=== PATIENT | male | born 1965 | race Caucasian/White ===

== ENCOUNTER 2022-10-24 05:56 | Emergency (ER) | payer OTHER ==
[~2022-10-24] VITALS: Ht 167.6 cm; Wt 65.0 kg
--- NOTE | 2022-10-24 08:11 | NUR ---
pt states he has double vision when looking out of both eyes. when he covers one eye the vision is fine. there does appear to be some uncoordinated movement with the right eye and significant other at bedside says that is not normal for him and he doesn't normally look like that.
[2022-10-24 08:18] LABS: BASOPHILS % (AUTO) 0.7 % (0-1); EOSINOPHILS % (AUTO) 0.6 % (0-6); HEMATOCRIT 38.8 % (42.0-52.0); HEMOGLOBIN 13.1 g/dl (14.0-17.9); LYMPHOCYTES % (AUTO) 19.4 % (21-51); MEAN CORPUSCULAR HGB CONC 33.8 g/dL (33.0-36.5); MEAN CORPUSCULAR VOLUME 91.8 FL (78-98); MEAN PLATELET VOLUME 6.6 FL (7.4-10.4); MONOCYTES # (AUTO) 1.1 X10'3 (0-0.9); MONOCYTES % (AUTO) 20.6 % (2-12); NEUTROPHILS # (AUTO) 3.1 X10'3 (1.8-7.7); NEUTROPHILS % (AUTO) 58.7 % (42-75); PLATELET COUNT 271 X10'3 (140-440); RED BLOOD COUNT 4.22 X10'6 (4.70-6.10); RED CELL DISTRIBUTION WIDTH 13.4 % (11.5-14.5); WHITE BLOOD COUNT 5.2 X10'3 (4.5-11.0)
[2022-10-24 08:30] LABS: ALANINE AMINOTRANSFERASE 45 U/L (12-78); ALBUMIN 3.5 G/DL (3.4-5.0); ALBUMIN/GLOBULIN RATIO 0.9 (1.1-1.5); ALKALINE PHOSPHATASE 69 IU/L (46-116); ANION GAP 6 (8-16); ASPARTATE AMINO TRANSFERASE 38 U/L (10-37); BILIRUBIN,TOTAL 0.3 MG/DL (0.1-1.0); BLOOD UREA NITROGEN 12 MG/DL (7-18); BUN/CREATININE RATIO 11.9 (5.4-32.0); CALCIUM 8.4 MG/DL (8.5-10.1); CHLORIDE 99 MMOL/L (99-107); CREATININE 1.01 MG/DL (0.60-1.10); GLUCOSE 121 MG/DL (70-104); POTASSIUM 3.7 MMOL/L (3.5-5.1); SODIUM 133 MMOL/L (135-145); TOTAL CARBON DIOXIDE 28.3 MMOL/L (24-32); TOTAL PROTEIN 7.3 G/DL (6.4-8.2); eGFR 76 ML/MIN
[2022-10-24] MEDS ORDERED: normal saline 1000ML IV soln IVB ONE (08:30)
[2022-10-24 08:33] LABS: APTT 27 SECONDS (22-32)
--- NOTE | 2022-10-24 08:43 | NUR ---
significant other at bedside. medical office technology instructor just entered the room and said that MD wants MRI/MRA of head. She is going to change the order as it was originally entered for CTA head. IV fluids infusing. pt denies needs at this time. reports vision is not getting better or worse. just staying the same.
[2022-10-24 08:55] LABS: C-REACTIVE PROTEIN 0.22 MG/DL (0.0-0.5); CHOL/HDL RATIO 2.8 (0.00-4.99); CHOLESTEROL 141 MG/DL (0-200); HDL CHOLESTEROL 50 MG/DL (35-60); LDL CHOLESTEROL 83 MG/DL (50-100); TRIGLYCERIDES 37 MG/DL (20-135)
--- NOTE | 2022-10-24 11:59 | NUR ---
pt back from MRI - no changes in condition. vitals updated
[2022-10-24 13:49] VITALS: BP 103/67
--- NOTE | 2022-10-24 13:49 | NUR ---
unable to locate an eye patch. a dressing was used to patch eye and pt states he will pick up driver an eye patch at pharmacy
== END 2022-10-24 13:52 | disposition home or self-care (01) ==
LOC: ER 05:58
DX: H49.01 Third [oculomotor] nerve palsy, right eye (principal); H53.2 Diplopia
CPT/HCPCS: 36415; 70450; 70544; 70551; 72170; 80053; 85025; 85610; 85651; 85730; 93005; 96360; 99285; J7030; 80061; 86140

== ENCOUNTER 2023-05-06 18:08 | Emergency (ER) | payer MEDICAID ==
[~2023-05-06] VITALS: Ht 172.7 cm; Wt 68.2 kg
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
[2023-05-06] MEDS ORDERED: morphine 10mg/ml inj. IV ONE (18:25)
--- NOTE | 2023-05-06 18:26 | NUR ---
IV to NGUYEN 18G. First attempt.
[2023-05-06] MEDS ORDERED: TETRACAINE 0.5% 4 ML OPHTHALMIC DROPS LEFTEYE ONE (18:35)
[2023-05-06] MEDS ORDERED: famotidine/PF 10 mg/ml inj IV ONE (18:55)
[2023-05-06] MEDS ORDERED: bacitracin 15gm ointment TP ONE ×2 (18:55→20:15)
[2023-05-06] MEDS ORDERED: ringers solution, lacted 1,000 ML IV ONE ×3 (18:55)
[2023-05-06 19:23] LABS: BASOPHILS # (AUTO) 0.1 X10'3 (0-0.2); BASOPHILS % (AUTO) 0.9 % (0-1); EOSINOPHILS # (AUTO) 0.4 X10'3 (0-0.9); HEMATOCRIT 38.3 % (42.0-52.0); HEMOGLOBIN 12.7 g/dl (14.0-17.9); LYMPHOCYTES # (AUTO) 3.8 X10'3 (1.1-4.8); LYMPHOCYTES % (AUTO) 34.5 % (21-51); MEAN CORPUSCULAR HEMOGLOBIN 30.7 PG (27.0-31.0); MEAN CORPUSCULAR VOLUME 93.1 FL (78-98); MEAN PLATELET VOLUME 7.4 FL (7.4-10.4); MONOCYTES # (AUTO) 0.9 X10'3 (0-0.9); MONOCYTES % (AUTO) 8.3 % (2-12); NEUTROPHILS # (AUTO) 5.8 X10'3 (1.8-7.7); NEUTROPHILS % (AUTO) 52.3 % (42-75); PLATELET COUNT 346 X10'3 (140-440); RED BLOOD COUNT 4.12 X10'6 (4.70-6.10); RED CELL DISTRIBUTION WIDTH 13.5 % (11.5-14.5); WHITE BLOOD COUNT 11.1 X10'3 (4.5-11.0)
[2023-05-06 19:29] LABS: APTT 22 SECONDS (22-32)
[2023-05-06 19:31] LABS: ALANINE AMINOTRANSFERASE 70 U/L (12-78); ALBUMIN 3.6 G/DL (3.4-5.0); ALKALINE PHOSPHATASE 86 IU/L (46-116); ANION GAP 8 (8-16); ASPARTATE AMINO TRANSFERASE 46 U/L (10-37); BILIRUBIN,TOTAL 0.4 MG/DL (0.1-1.0); BLOOD UREA NITROGEN 8 MG/DL (7-18); BUN/CREATININE RATIO 7.5 (10.0-20.0); CALCIUM 8.7 MG/DL (8.5-10.1); CHLORIDE 106 MMOL/L (99-107); CREATININE 1.06 MG/DL (0.60-1.10); GLUCOSE 108 MG/DL (70-104); POTASSIUM 3.9 MMOL/L (3.5-5.1); SODIUM 142 MMOL/L (135-145); TOTAL CARBON DIOXIDE 28.4 MMOL/L (24-32); TOTAL PROTEIN 7.2 G/DL (6.4-8.2); eGFR 72 ML/MIN
[2023-05-06 19:39] LABS: CREATINE KINASE 138 U/L (39-308); LIPASE 50 U/L (73-393)
[2023-05-06 19:45] LABS: ETHANOL < 0.010 GM/DL (0.0-0.010)
[2023-05-06 19:51] LABS: CLARITY,URINE CLEAR (Clear); COLOR,URINE YELLOW (Yellow); GLUCOSE, URINE NEGATIVE (Neg); KETONES,URINE NEGATIVE (Neg); LEUKOCYTE ESTERASE ,URINE NEGATIVE (Neg); NITRITES, URINE NEGATIVE (Neg); OCCULT BLOOD,URINE NEGATIVE (Neg); PH,URINE 6.5 (4.8-8.0); PROTEIN,URINE NEGATIVE (Neg)
[2023-05-06 19:53] LABS: UA COLLECTION TYPE FOLEY CATH
[2023-05-06 19:54] LABS: URINE AMPHETAMINE SCREEN POSITIVE (Neg); URINE BARBITUATE SCREEN NEGATIVE (Neg); URINE BENZODIAZEPINES SCREEN NEGATIVE (Neg); URINE CANNABINOID SCREEN NEGATIVE (Neg); URINE COCAINE SCREEN NEGATIVE (Neg); URINE METHADONE SCREEN NEGATIVE (Neg); URINE OPIATE SCREEN POSITIVE (Neg); URINE PHENCYCLIDINE SCREEN NEGATIVE (Neg)
--- NOTE | 2023-05-06 20:36 | NUR ---
pt. ina sterile water flushes to face, lue and rle with some discomfort due to the coolness of sterile water. resting quietly at this time dozing intermittenly. Awaiting transportation to [facility].
[2023-05-06 21:15] VITALS: BP 126/75
--- NOTE | 2023-05-06 21:49 | NUR ---
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
== END 2023-05-06 21:56 | disposition short-term general hospital (02) ==
LOC: ER 18:09
DX: T31.11 Burns involving 10-19% of body surface with 10-19% third degree burns (principal); T79.8XXA Other early complications of trauma, initial encounter; F15.10 Other stimulant abuse, uncomplicated; T23.302A Burn of third degree of left hand, unspecified site, initial encounter
CPT/HCPCS: 16025; 36415; 71045; 73610; 80053; 80305; 80320; 81003; 82550; 83690; 83874; 84484; 85025; 85610; 85730; 93005; 96361; 96374; 96375; 99291; J2274; J3490; J7120; C1758

== ENCOUNTER 2024-11-21 00:12 | Emergency (ER) | payer MEDICAID, OTHER ==
[~2024-11-21] VITALS: Ht 172.7 cm; Wt 72.2 kg
[2024-11-21] MEDS ORDERED: iohexol 300mg/ml 100ml inj. ONE (00:27)
[2024-11-21] MEDS: normal saline 1000ml 1,000 ML IV STA (01:19)
[2024-11-21] MEDS: ondansetron/PF 4mg/2ml inj IV ONE (03:20)
[2024-11-21] MEDS: ketorolac trometh 15mg/ml vial 15 MG/ML ML IV ONE (03:21)
[2024-11-21] MEDS: morphine 4 MG/ML inj SYRINge IV ONE (03:21)
[2024-11-21] MEDS ORDERED: ONDA-245 PO (05:08)
[2024-11-21] MEDS ORDERED: HYDR-3965 PO (05:08)
[2024-11-21] MEDS: HYDROcodone/acetaminophen 5mg/325mg tablet PO ONE (06:02)
[2024-11-21 06:07] VITALS: BP 107/63; PULSE 76; RESP 16; TEMP 98.7; O2SAT 100
== END 2024-11-21 06:34 | disposition home or self-care (01) ==
LOC: ER 00:12
DX: S82.141A Displaced bicondylar fracture of right tibia, initial encounter for closed fracture (principal); M25.561 Pain in right knee; M79.601 Pain in right arm; M54.2 Cervicalgia; F15.90 Other stimulant use, unspecified, uncomplicated; V89.2XXA Person injured in unspecified motor-vehicle accident, traffic, initial encounter; Y93.89 Activity, other specified; Y92.89 Other specified places as the place of occurrence of the external cause; Y99.8 Other external cause status
CPT/HCPCS: 70450; 71260; 72125; 73030; 73080; 73700; 74177; 96361; 96374; 96375; 99291; J1885; J2270; J2405; J7030; Q9967